=== PATIENT | male | born 1995 | race Caucasian/White ===

== ENCOUNTER 2022-04-30 15:05 | Emergency (ER) | payer OTHER ==
[~2022-04-30] VITALS: Ht 185.4 cm; Wt 90.9 kg
[2022-04-30 15:06] VITALS: BP 117/63
[2022-04-30] MEDS ORDERED: KETOROLAC 60MG 2ML VIAL IM ONE (17:05)
== END 2022-04-30 18:57 | disposition home or self-care (01) ==
LOC: M ED 15:05 → EDBD 15:05 → M ED 18:57
DX: M54.50 Low back pain, unspecified (principal); Z88.0 Allergy status to penicillin
CPT/HCPCS: 72131; 81000; 81015; 87086; 96372; 99282; J1885

== ENCOUNTER 2023-08-26 07:09 | Emergency (ER) | payer OTHER ==
[~2023-08-26] VITALS: Ht 185.4 cm; Wt 98.5 kg
[2023-08-26 10:21] LABS: BASO % 0.4 % (0.0-1.0); EOS # 0.2 10^3/uL (0.0-0.5); EOS % 3.3 % (0.0-3.0); HEMATOCRIT 48.8 % (42.0-52.0); HEMOGLOBIN 15.8 g/dl (13.5-17.5); LYMPH # 1.6 10^3/uL (1.5-5.0); LYMPH % 21.7 % (24.0-44.0); MEAN CORPUSCULAR HGB CONC 32.4 g/dl (32.0-36.5); MEAN CORPUSCULAR VOLUME 92.6 fl (80.0-96.0); MONO # 0.7 10^3/uL (0.0-0.8); MONO % 9.5 % (2.0-8.0); NEUTROPHILS # 4.7 10^3/uL (1.5-8.5); NEUTROPHILS % 64.8 % (36.0-66.0); PLATELET COUNT, AUTOMATED 231 10^3/uL (150-450); RED BLOOD COUNT 5.27 10^6/uL (4.30-6.10); WHITE BLOOD COUNT 7.2 10^3/uL (4.0-10.0)
[2023-08-26 10:52] LABS: LIPASE 27 U/L (12-53)
[2023-08-26 10:54] LABS: ALBUMIN 3.7 G/DL (3.2-5.2); ALKALINE PHOSPHATASE 54 U/L (46-116); ALT/SGPT 83 U/L (7.0-40); AST/SGOT 48 U/L (<34); BILIRUBIN,DIRECT 0.2 MG/DL (<0.4); BILIRUBIN,TOTAL 0.6 MG/DL (0.3-1.2); BLOOD UREA NITROGEN 13 MG/DL (9-23); CARBON DIOXIDE LEVEL 30 MMOL/L (20-31); CHLORIDE LEVEL 101 MMOL/L (98-107); GLOMERULAR FILTRATION RATE > 60.0 (>60); GLUCOSE, FASTING 85 MG/DL (60-100); POTASSIUM SERUM 4.3 MMOL/L (3.5-5.1); SODIUM LEVEL 138 MMOL/L (136-145); TOTAL PROTEIN 7.5 G/DL (5.7-8.2)
[2023-08-26] MEDS ORDERED: MIRA3350 PO (11:59)
[2023-08-26] MEDS ORDERED: DULC10SU2 PR (11:59)
[2023-08-26 12:11] VITALS: BP 150/72; TEMP 98.7; O2SAT 98
== END 2023-08-26 12:24 | disposition home or self-care (01) ==
LOC: M ED 10:01
DX: R10.84 Generalized abdominal pain (principal); K59.00 Constipation, unspecified; F17.200 Nicotine dependence, unspecified, uncomplicated; Z88.0 Allergy status to penicillin; Z79.899 Other long term (current) drug therapy

== ENCOUNTER → 2024-08-09 | Outpatient (CLI) | payer OTHER ==
[~2024-08-09] MED LIST: DULC10SU2 PR; MIRA3350 PO
== END ==
LOC: M CARPUL 08:42
PROVIDERS: ATTEND Internal Medicine
DX: Z72.89 Other problems related to lifestyle (principal); R06.09 Other forms of dyspnea; F17.290 Nicotine dependence, other tobacco product, uncomplicated